=== PATIENT | female | born 1995 | race Caucasian/White ===

== ENCOUNTER 2016-08-29 14:51 | Outpatient (CLI) | payer OTHER ==
--- NOTE | 2016-08-29 16:28 | DIAGNOSTIC IMAGING REPORT ---
PROCEDURE: US OB 1ST TRIMESTER W/TRANSVAG INDICATION: Amenorrhea. Check dates and viability. TECHNIQUE: Pérez scale, color, and spectral Doppler transabdominal and endovaginal sonographic images of the first trimester gravid uterus were obtained. COMPARISON: None. FINDINGS: TRANSABDOMINAL SCANS: There is an early intrauterine . Uterus is retroflexed (normal variant). TRANSVAGINAL SCANS: There is early viable intrauterine with cardiac activity (185). [place]-rump length is 2.1 cm (8.7 weeks). Placenta circumferential. Normal fluid and cervix length (4.0 cm). There is a 2.5 cm left ovarian cyst with trace free fluid. Right ovary is normal (is 2.5 cm). IMPRESSION: 1. There is early viable intrauterine at 8.7 weeks menstrual age (plus or minus 1 week). PEDRO PABLO is 04/05/2017. 2. Retroflexed uterus (normal variant). 3. There is a 2.5 cm simple left ovarian cyst (incidental finding)
== END 2016-08-29 23:00 | disposition home or self-care (01) ==
LOC: LAB SRH 14:51 → US SRH 14:51
DX: Z34.91 Encounter for supervision of normal pregnancy, unspecified, first trimester (principal); Z3A.08 8 weeks gestation of pregnancy
CPT/HCPCS: 90004; 90074; 90078; 90261; 90364; 90599; 90600; 90605; 90606; 90710; 90851; 92863; 93140; 98480; 99777